=== PATIENT | male | born 1995 | race African-American/Black ===

== ENCOUNTER 2021-04-13 14:33 | Emergency (ER) | payer MEDICAID, OTHER ==
[~2021-04-13] VITALS: Ht 170.2 cm; Wt 72.6 kg
[2021-04-13 14:36] VITALS: BP 143/73
== END 2021-04-13 16:38 | disposition home or self-care (01) ==
LOC: ER 14:33
DX: L02.412 Cutaneous abscess of left axilla (principal); F17.210 Nicotine dependence, cigarettes, uncomplicated